=== PATIENT | male | born 1950 ===

== ENCOUNTER 2017-05-19 12:00 | Inpatient (IN) | payer OTHER ==
[~2017-05-19] VITALS: Ht 167.6 cm; Wt 68.9 kg
[2017-05-27] MEDS ORDERED: RESTORIL30 M1 PO (13:52)
[2017-05-27] MEDS ORDERED: GABAPENTIN800 MG PO (13:52)
[2017-05-27] MEDS ORDERED: AMOXICILLIN875 MG PO (13:52)
[2017-05-27] MEDS ORDERED: PERCOCET 5-3251 EACH PO (13:52)
[2017-05-27] MEDS ORDERED: DOCUSATE SODIU100 MG PO (13:52)
== END 2017-05-27 16:19 | disposition home or self-care (01) | DRG 460 ==
LOC: O/R 05-26 06:00 → PED 05-26 06:00 → SURH 05-26 09:45 → PED 05-26 20:01
PROVIDERS: Orthopaedic Surgery Orthopaedic Surgery of the Spine
PROC: 0SG10AJ Fusion of 2 or more Lumbar Vertebral Joints with Interbody Fusion Device, Posterior Approach, Anterior Column, Open Approach (ICD-10-PCS; 2017-05-26)
PROC: 0ST20ZZ Resection of Lumbar Vertebral Disc, Open Approach (ICD-10-PCS; 2017-05-26)
PROC: 07DS3ZZ Extraction of Vertebral Bone Marrow, Percutaneous Approach (ICD-10-PCS; 2017-05-26)
PROC: 0SG10A0 Fusion of 2 or more Lumbar Vertebral Joints with Interbody Fusion Device, Anterior Approach, Anterior Column, Open Approach (ICD-10-PCS; principal; 2017-05-26 09:45)
DX: M47.26 Other spondylosis with radiculopathy, lumbar region (principal); M96.1 Postlaminectomy syndrome, not elsewhere classified; M51.16 Intervertebral disc disorders with radiculopathy, lumbar region; M43.16 Spondylolisthesis, lumbar region; I10 Essential (primary) hypertension; M41.86 Other forms of scoliosis, lumbar region